=== PATIENT | male | born 1945 | race Caucasian/White ===

== ENCOUNTER 2017-03-27 18:49 | Emergency (ER) | payer MEDICARE ==
--- NOTE | ~2017-03-27 | ER ---
PATIENT'S NAME: MIGUELITO CORREA [facility] AGE: 71 Y [address] ROOM: [place] [address] LOCATION: [facility] ADMIT DATE: 03/27/2017 ER/Outpatient Report DISCHARGE DATE: FAMILY PHYSICIAN: Saman Thompson MD ATTENDING PHYSICIAN: Luke Benedict Admission date and time documented in the medical record, I saw the patient at 1905 hours. CHIEF COMPLAINT: Laceration of left fifth finger, middle phalanx, palmar surface. HISTORY OF PRESENT ILLNESS: The patient is a 71-year-old male, who suffered laceration to his left fifth finger sometime this afternoon. He was brought to the emergency room for evaluation. No other injuries. No other complaints. HOME MEDICATIONS: See attached medication list. ALLERGIES: NONE. SOCIAL HISTORY: The patient smokes a pack of cigarettes per day, nondrinker. SIGNIFICANT PAST MEDICAL HISTORY: Tobacco abuse, otherwise negative. OPERATIONS: None. REVIEW OF SYSTEMS: All systems reviewed by me and are negative with the exception of those discussed in the history of present illness. PHYSICAL EXAMINATION: VITAL SIGNS: Temperature 98.4 tympanic, pulse 102, respirations 15, blood pressure 144/86, and O2 saturation on room air is 96%. EXTREMITIES: The patient has about a 3 cm laceration on horizontal palmar surface, left fifth finger, middle phalanx. The patient has good movement of his finger. Neurovascular intact. Capillary refill intact. No active bleeding. EMERGENCY DEPARTMENT COURSE: PATIENT'S NAME: MIGUELITO CORREA [facility] AGE: 71 Y [address] ROOM: [place] [address] LOCATION: [facility] ADMIT DATE: 03/27/2017 ER/Outpatient Report DISCHARGE DATE: FAMILY PHYSICIAN: Saman Thompson MD ATTENDING PHYSICIAN: Luke Benedict Wound was cleansed with Betadine and normal saline. Flush wound out with normal saline. Xylocaine 1% was used for local filtration anesthesia. Wound was closed in simple fashion with 4-0 Ethilon suture. Wound was cleansed and dressed. The patient tolerated the procedure well. IMPRESSION: A 3 cm laceration, left fifth finger with simple closure. PLAN: The patient dismissed home. Observation. Activity as tolerated. Continue home medications and care. Keep wound clean. Watch for infection. Cleanse and dress wound daily. Keflex 500 mg 4 times a day for a week. Follow up with personal physician in 10 days for suture removal or sooner if needed. MD REINIER TAYLOR/traci /[id number] d: 03/27/179 t: 03/27/17 2205, OUTPATIENT REPORT
== END 2017-03-27 19:29 | disposition disaster alternative care site (69) ==
LOC: GACC 18:49
PROC: 0HQGXZZ Repair Left Hand Skin, External Approach (ICD-10-PCS; principal; 2017-03-27)
DX: S61.217A Laceration without foreign body of left little finger without damage to nail, initial encounter (principal); F17.210 Nicotine dependence, cigarettes, uncomplicated; X58.XXXA Exposure to other specified factors, initial encounter; Z23 Encounter for immunization